=== PATIENT | female | born 1975 | race Caucasian/White ===

== ENCOUNTER 2022-04-09 19:02 | Emergency (ER) | payer OTHER, SELFPAY ==
[2022-04-09 19:13] VITALS: BMI 33.6
--- NOTE | 2022-04-09 19:13 | XRR_ITS ---
PROCEDURE INFORMATION: Exam: XR Right Foot Exam date and time: 04/09/2022 7:15 PM Age: 46 years old Clinical indication: Pain; Foot; Right; Additional info: Injury/pain TECHNIQUE: Imaging protocol: Radiologic exam of the Right foot. Views: 3 or more views. COMPARISON: No relevant prior studies available. FINDINGS: Bones/joints: Normal alignment. No fracture. Joint surfaces preserved. Soft tissues: Normal. XR/XR foot RT min 3V* [id number] IMPRESSION: Normal right foot.
--- NOTE | 2022-04-09 20:48 | ED_ITS ---
HPI - Extremity Injury (Lower) General: Chief Complaint: Extremity Injury, Lower Stated Complaint: fall, right foot injury Time Seen by Provider: 04/09/22 20:47 Source: patient Mode of arrival: wheelchair Limitations: no limitations History of Present Illness: Patient is a 46-year-old female who presents to ED today with complaints of a right foot injury. Patient states earlier today she tripped and fell and twisted the right foot. Patient states she is not able to bear weight on the extremity secondary to swelling and discomfort. She denies any other injuries or complaints at this time. complaint: foot injury Onset (ago): hour(s) Injury: Right: foot Severity: moderate Relieving factors: immobilization Exacerbating factors: weight bearing, movement and palpation Associated symptoms: Reports inability to bear weight Other symptoms: none Review of Systems Musc: Reports: extremity pain (R foot) and extremity swelling (R foot); Denies: neck pain, back pain, joint pain or joint swelling Neuro: Denies: numbness in extremities or sensory changes Physical Exam Const: COMMON NORMALS: no acute distress, average body habitus, no limitations, healthy appearing, alert and well nourished Extremity: GENERAL: Yes normal exam except as noted RIGHT LOWER EXTREMITY: Yes foot & digits (tenderness throughout dorsal mid foot, base 5th metatarsal, and medial arch) Right foot and digits: Yes ROM (limited secondary to pain) and Yes neurovascular exam (normal) Neuro: COMMON NORMALS: moves all extremities, no focal motor deficits and no sensory deficits noted SENSORIUM/ORIENTATION: Yes alert Skin: TRAUMA: no lacerations or abrasions MDM - Extremity Injury (Lower) Medical Decision Making XR read negative. Patient states she has a set of crutches at home. Will RADHA wrap, RICE therapy discussed, recommend follow-up with PCP in 1 to 2 weeks if pain persists or fails to improve. Lab Data Radiology Impressions Foot X-Ray 04/09/22 19:13 IMPRESSION: Normal right foot. Discharge Plan Discharge Patient Disposition: Home Clinical Impression: Right foot sprain Qualifiers: Encounter type: initial encounter Qualified Code(s): S93.601A - Unspecified sprain of right foot, initial encounter Condition: Stable Prescriptions: New ibuprofen 800 mg tablet 800 mg PO Q8H PRN (Reason: pain) Qty: 20 0RF hydrocodone-acetaminophen 5-325 mg tablet 1 tab PO Q6H PRN (Reason: pain) Qty: 8 0RF Discharge Orders: Discharge ED (Routine); Ordered 04/09/22 Ordered By: Linda Lozada Referrals: Sukh Fabian MD [Physician] - Patient Instructions: Foot Sprain (ED), Opioid Safety, Pain Management, RICE Therapy Coding Level of Care Code ED Signal Maintenance Technician for Maico Gomez
[2022-04-09] MEDS: HYDROcodone-acetaminophen 5-325 mg Tablet 2 TAB PO (21:31)
[2022-04-09] MEDS: ibuprofen 800 mg tablet 1600 MG PO (21:31)
== END 2022-04-09 21:33 | disposition home or self-care (01) ==
PROVIDERS: Emergency Provider Physician Assistant
DX: S93.601A Unspecified sprain of right foot, initial encounter (principal); W01.0XXA Fall on same level from slipping, tripping and stumbling without subsequent striking against object, initial encounter
CPT/HCPCS: 73630; 99284

== ENCOUNTER 2022-11-26 10:12 | Emergency (ER) | payer OTHER, SELFPAY ==
[2022-11-26 10:24] VITALS: BP 162/107; PULSE 67; RESP 16; TEMP 36.6; O2SAT 100
--- NOTE | 2022-11-26 10:43 | CT_ITS ---
WS: [id number] CT ABDOMEN AND PELVIS NONCONTRAST HISTORY: Abdominal pain TECHNIQUE: Imaging performed through the abdomen and pelvis. Coronal and sagittal reformats are submi tted. All CT scans at [facility] use at least one of these dose optimization techniques: auto mated exposure control; mA and/or kV adjustment per patient size (includes targeted exams where dose is matched to clinical indication); or iterative reconstruction. DLP: 922.12 mGy.cm COMPARISON: 08/17/2018 Lower thorax: Lung bases are clear. Visualized heart is normal. Small hiatal hernia. Liver: Mild hepatomegaly and hepatic steatosis. No bile duct dilatation is evident. Gallbladder: Prior cholecystectomy. Pancreas: Normal size and attenuation. Normal pancreatic duct. No pancreatitis or mass. Spleen: Normal. Adrenal glands: Normal. No mass. Right kidney: Normal size kidney with no mass or hydronephrosis. Left kidney: Normal size kidney with no mass or hydronephrosis. Aorta: Normal abdominal aorta, no aneurysm or atherosclerosis. No free fluid, intraperitoneal air or significant lymphadenopathy. GI tract: Normal stomach. No small bowel obstruction. Moderate fecal retention in the cecum. Numerous diverticula throughout the colon. There are scattered RIGHT colonic diverticula. Increasing divertic ular burden in the descending and sigmoid colon. Increase in circumferential wall thickening througho ut the sigmoid related to chronic diverticulosis. No evidence for an acute diverticulitis. No abscess or free air. Prior appendectomy. Abdominal wall: Negative. No hernia. Pelvis: No free fluid. Prior hysterectomy. Osseous structures: Increase in the lumbar lordosis. IMPRESSION: 1. Mild progression of advanced diverticulosis throughout the colon. Most significant wall thickenin g is in the sigmoid region. No acute diverticulitis. 2. Prior appendectomy and hysterectomy. 3. Prior cholecystectomy. 4. Mild hepatic steatosis and hepatomegaly.
[2022-11-26 10:59] VITALS: BP 162/107; PULSE 67; RESP 18; O2SAT 96
[2022-11-26 11:07] LABS: Basophils % 0.8 %; Eosinophils # 0.1 10^3/uL (0.0-0.8); Eosinophils % 1.6 %; Hematocrit 39.7 % (36-47); Lymphocytes % 39.5 %; Mean Corpuscular HGB Conc 32.7 g/dL (30-55); Mean Corpuscular Hemoglobin 29.7 pg (27-33); Mean Corpuscular Volume 90.8 fl (85-98); Mean Platelet Volume 9.1 fL (7.4-10.4); Monocytes # 0.4 10^3/uL (0.2-0.9); Monocytes % 7.8 %; Neutrophils # 2.51 10^3/uL (1.8-7.7); Neutrophils % 50.3 %; Nucleated Red Blood Cells % 0 %; Platelet Count 322 10^3/cmm (157-399); Red Blood Count 4.37 10^6/uL (3.85-5.65); Red Cell Distribution Width 12.4 % (12.1-15.1); White Blood Count 4.99 10^3/uL (3.29-11.43)
[2022-11-26] MEDS: sodium chloride 0.9% 1,000 ML 999 ML IV (11:35)
[2022-11-26 11:37] LABS: HCG, Serum Qual Negative (Negative)
[2022-11-26 11:41] LABS: Add Urine Microscopic? NO; Charge for UA Resulting for Rev
[2022-11-26 11:41] LABS: Alanine Aminotransferase 42 U/L (0-33); Albumin Level 4.3 g/dL (3.5-5.2); Alkaline Phosphatase 62 U/L (35-105); Anion Gap 12.1 (5-19); Aspartate Amino Transferase 26 U/L (0-32); Blood Urea Nitrogen 8 mg/dL (6-20); Calcium 9.2 mg/dL (8.5-10.5); Carbon Dioxide 26 mmol/L (22-29); Chloride 105 mmol/L (98-107); Glomerular Filtration Rate 131.7 mL/min (90-130); Glucose 99 mg/dL (65-115); Lipase 31 U/L (13-60); Osmolality Calculated 286 mOsm/kg (285-295); Potassium 4.1 mmol/L (3.5-5.1); Sodium 139 mmol/L (136-145); Total Bilirubin 0.4 mg/dL (0.15-1.2); Total Protein 7.3 g/dL (6.6-8.7)
[2022-11-26 11:46] LABS: Bilirubin Urine Neg (Negative); Blood Urine Neg (Negative); Glucose Urine UA Norm (Normal); Ketones Urine Negative (Negative); Leukocyte Esterase Urine Negative (Negative); Nitrate Urine Negative (Negative); Protein Urine Neg (Negative); Urine Appearance Clear (CLEAR); Urine Color Yellow (Yellow); Urobilinogen Urine Norm (Negative); pH Urine 5 (5-7)
--- NOTE | 2022-11-26 12:30 | ED_ITS ---
HPI - Abdominal Pain General: Chief Complaint: Abdominal Pain Stated Complaint: abd pain Time Seen by Provider: 11/26/22 10:14 Source: patient Mode of arrival: ambulatory History of Present Illness: 47-year-old female presents emergency room complaining of intermittent left lower quadrant abdominal pain. She had previously had a colonoscopy several years ago where they were diagnosed with diverticulosis. Intermittently she has had pain discomfort in the left lower quadrant she has written off as diverticulitis, she adjusted her diet and was able to get these episodes to resolve. Has not been on any antibiotics recently for this. She denies any medic easy melena hematemesis cough nemesis no nausea or vomiting no fever. MD elicited complaint: abdominal pain Pertinent past history: other (Diverticulosis) Onset (ago): day(s) Pain Consistency: constant Location: LLQ Severity: moderate Quality: cramping Radiation: none Exacerbating factors: nothing Relieving factors: nothing Associated Symptoms: Reports nausea; Denies anorexia, belching, bloating, change in bowel habits, change in stool character, chills, coffee ground emesis, constipation, GI cramping, diarrhea, dyspepsia, dysuria, excessive flatus, fever(s), heartburn, hematochezia, hematuria, hematemesis, fecal incontinence, loose stools, melena, poor appetite, syncope and vomiting Review of Systems Const: Denies: fever(s) or chills Card: Denies: chest pain, palpitations, irregular heart rhythm, edema or syncope Resp: Denies: dyspnea, productive cough or non-productive cough GI: Reports: abdominal pain and nausea; Denies: vomiting, hematemesis, coffee ground emesis, heartburn, diarrhea, constipation, bloating, GI cramping, belching, excessive flatus, fecal incontinence, change in bowel habits, change in stool character, hematochezia or melena : Denies: dysuria or hematuria Skin/Breast: Denies: rash or pruritus PFSH ED PFSH: Medical History (Updated 11/26/22 @ 13:51 by Steve Mitchell DO) Diverticulosis Physical Exam Const: GENERAL APPEARANCE: cooperative and comfortable ORIENTAT ION/CONSCIOUSNESS: Yes awake, Yes oriented to person, Yes oriented to place and Yes oriented to time HENMT: COMMON NORMALS: normocephalic, atraumatic and hearing grossly normal bilaterally HEAD & SCALP: normocephalic and atraumatic Resp: COMMON NORMALS: normal respiratory effort, No retractions, No use of accessory muscles and clear to auscultation bilaterally AUSCULTATION: clear to auscultation bilaterally Cardio: COMMON NORMALS: regular rate, regular rhythm and No murmurs present (Cardio) RATE: regular rate RHYTHM: regular rhythm GI: COMMON NORMALS: Soft to palpation and No hepatosplenomegaly present AUSCULTATION: Yes normoactive bowel sounds PALPATION: Yes Soft to palpation, No Tenderness to palpation present (GI), No Guarding due to palpation present (GI) and Yes No hepatosplenomegaly present Extremity: COMMON NORMALS: normal to inspection, capillary refill normal, no clubbing, cyanosis or edema, no calf tenderness and no pedal edema Neuro: SENSORIUM/ORIENTATION: Yes oriented to person, Yes oriented to place and Yes oriented to time Skin: COMMON NORMALS: no rashes or lesions noted GENERAL SKIN EXAM: no rashes or lesions noted Course Vital Signs: Vital signs: Vital Signs Temperature 97.9 F 11/26/22 10:24 Pulse Rate 60 11/26/22 13:21 Respiratory Rate 18 11/26/22 10:59 Blood Pressure 162/107 11/26/22 10:59 Pulse Oximetry 100 11/26/22 13:21 Oxygen Delivery Me thod Room Air 11/26/22 10:59 MDM - Abdominal Pain Medical Decision Making CT shows chronic diverticulosis but no acute diverticulitis. White count is normal AST slightly elevated the remainder of the CMP is normal. Discharge patient home started on Levsin we will also. Also recommend consideration of MiraLAX. May need to be reevaluated by GI. She reports that her last colonoscopy she had some polyp. Hemoglobin today is normal and she has no reports of bright red blood per rectum recheck if worsens. Medical Records I reviewed the patient's medical records. Lab Data I reviewed the patient's lab results. 11/26/22 11:00 11/26/22 11:00 Labs/Radiology: Laboratory Results WBC 4.99 10^3/uL (3.29-11.43) 11/26/22 11:00 RBC 4.37 10^6/uL (3.85-5.65) 11/26/22 11:00 Hgb 13.00 g/dL (11.27-16.99) 11/26/22 11:00 Hct 39.7 % (36-47) 11/26/22 11:00 MCV 90.8 fl (85-98) 11/26/22 11:00 MCH 29.7 pg (27-33) 11/26/22 11:00 MCHC 32.7 g/dL (30-55) 11/26/22 11:00 RDW 12.4 % (12.1-15.1) 11/26/22 11:00 Plt Count 322 10^3/cmm (157-399) 11/26/22 11:00 MPV 9.1 fL (7.4-10.4) 11/26/22 11:00 Neut % (Auto) 50.3 % 11/26/22 11:00 Lymph % (Auto) 39.5 % 11/26/22 11:00 Grant % (Auto) 7.8 % 11/26/22 11:00 Eos % (Auto) 1.6 % 11/26/22 11:00 Baso % (Auto) 0.8 % 11/26/22 11:00 Neut # (Auto) 2.51 10^3/uL (1.8-7.7) 11/26/22 11:00 Lymph # (Auto) 2.0 10^3/uL (0.8-4.8) 11/26/22 11:00 Grant # (Auto) 0.4 10^3/uL (0.2-0.9) 11/26/22 11:00 Eos # (Auto) 0.1 10^3/uL (0.0-0.8) 11/26/22 11:00 Baso # (Auto) 0.0 10^3/uL (0.0-0.1) 11/26/22 11:00 Nucleated RBC % (auto) 0 % 11/26/22 11:00 Nucleated RBCs # 0.0 /100WBC 11/26/22 11:00 Sodium 139 mmol/L (136-145) 11/26/22 11:00 Potassium 4.1 mmol/L (3.5-5.1) 11/26/22 11:00 Chloride 105 mmol/L (98-107) 11/26/22 11:00 Carbon Dioxide 26 mmol/L (22-29) 11/26/22 11:00 Anion Gap 12.1 (5-19) 11/26/22 11:00 BUN 8 mg/dL (6-20) 11/26/22 11:00 Creatinine 0.5 mg/dL (0.5-0.9) 11/26/22 11:00 GFR Calculation 131.7 mL/min (90-130) H 11/26/22 11:00 Glucose 99 mg/dL (65-115) 11/26/22 11:00 Calculated Osmolality 286 mOsm/kg (285-295) 11/26/22 11:00 Calcium 9.2 mg/dL (8.5-10.5) 11/26/22 11:00 Total Bilirubin 0.4 mg/dL (0.15-1.2) 11/26/22 11:00 AST 26 U/L (0-32) 11/26/22 11:00 ALT 42 U/L (0-33) H 11/26/22 11:00 Alkaline Phosphatase 62 U/L (35-105) 11/26/22 11:00 Total Protein 7.3 g/dL (6.6-8.7) 11/26/22 11:00 Albumin 4.3 g/dL (3.5-5.2) 11/26/22 11:00 Globulin 3.0 g/dL (1.3-4.6) 11/26/22 11:00 Lipase 31 U/L (13-60) 11/26/22 11:00 HCG, Qual Negative (Negative) 11/26/22 11:00 Urine Color Yellow (Yellow) 11/26/22 11:31 Urine Appearance Clear (CLEAR) 11/26/22 11:31 Urine pH 5 (5-7) 11/26/22 11:31 Ur Specific [place] 1.020 (1.005-1.030) 11/26/22 11:31 Urine Protein Neg (Negative) 11/26/22 11:31 Urine Glucose (UA) Norm (Normal) 11/26/22 11:31 Urine Ketones Negative (Negative) 11/26/22 11:31 Urine Blood Neg (Negative) 11/26/22 11:31 Urine Nitrate Negative (Negative) 11/26/22 11:31 Urine Bilirubin Neg (Negative) 11/26/22 11:31 Urine Urobilinogen Norm mg/dL (Negative) 11/26/22 11:31 Ur Leukocyte Esterase Negative (Negative) 11/26/22 11:31 Discharge Plan Discharge Patient Disposition: Home Clinical Impression: Constipation, Diverticulosis Condition: Stable Prescriptions: New Levsin 0.125 mg tablet 0.125 mg PO QID PRN (Reason: dyspepsia) Qty: 20 0RF No Action Prilosec OTC 20 mg Tablet,Delayed Release (Dr/Ec) 20 mg PO BID Discharge Orders: Discharge ED (Routine); Ordered 11/26/22 Ordered By: Steve Mitchell Referrals: Sukh Fabian MD [Primary Care Provider] - Discharge Diet: Clear Liquid Discharge Activity: Increase activity as tolerated Patient Instructions: Opioid Safety, Pain Management Activity Restrictions/Additional Instructions: Clear liquid diet for 24 hrs Recheck with your doctor within the next week. Coding Level of Care Code ED Installer Metal Flooring for Maico Gomez
[2022-11-26] MEDS: ketorolac 30 mg/mL INJ IVP (12:52)
[2022-11-26 13:21] VITALS: PULSE 60; O2SAT 100
== END 2022-11-26 13:22 | disposition home or self-care (01) ==
PROVIDERS: Physician Assistant; Emergency Provider Family Medicine; PCP Family Medicine
DX: K57.90 Diverticulosis of intestine, part unspecified, without perforation or abscess without bleeding (principal); K59.00 Constipation, unspecified
CPT/HCPCS: 36415; 74176; 80053; 81003; 83690; 84703; 85025; 87040; 96374; 99284; J1885; J7030

== ENCOUNTER 2025-03-15 10:31 | Outpatient (CLI) | payer OTHER, SELFPAY ==
--- NOTE | 2025-03-15 11:08 | MM_ITS ---
WS: [id number] BILATERAL SCREENING DIGITAL TOMOSYNTHESIS MAMMOGRAM WITH CAD HISTORY: ANNUAL SCREEN COMPARISON: 04/12/2018, 11/14/2014 Bilateral CC and MLO views with tomosynthesis and synthetic mammography submitted. Computer aided detection analyzed. Breast composition: There are scattered areas of fibroglandular density. No suspicious masses, microcalcifications or architectural distortion. Benign calcification 12:00 LEFT breast. There are a few additional smaller calcifications scattered within each breast. MM/MM scr tomosynthesis [id number] IMPRESSION: BI-RADS: 2 - Benign. FOLLOW UP: 1 Year Follow-up
== END 2025-03-15 10:32 | disposition home or self-care (01) ==
LOC: RAD 10:34
PROVIDERS: PCP Family Medicine; Visit Provider Family Medicine
DX: Z12.31 Encounter for screening mammogram for malignant neoplasm of breast (principal); R92.323 Mammographic fibroglandular density, bilateral breasts; D24.2 Benign neoplasm of left breast
CPT/HCPCS: 77063; 77067